=== PATIENT | female | born 1970 | race Caucasian/White ===

== ENCOUNTER → 2022-01-11 | Emergency (ER) | payer OTHER ==
[2022-01-11 18:27] VITALS: BP 120/88; PULSE 96; RESP 16; TEMP 98.5; BMI 21.0
[2022-01-11 21:48] LABS: BASO % 0.2 % (0-2.0); EOS % 2.4 % (0-4.5); HEMATOCRIT 44.4 % (32.4-45.2); HEMOGLOBIN 14.6 GM/dL (10.7-15.3); LYMPH % 24.9 % (8-40); MCH 29.1 pg (25.7-33.7); MCHC 32.9 g/dl (32.0-36.0); MEAN CELL VOLUME 88.4 fl (80-96); MEAN PLT VOLUME 8.8 fl (7.5-11.1); MONO % 7.1 % (3.8-10.2); NEUT % 65.4 % (42.8-82.8); PLATELET COUNT 401 10^3/uL (134-434); RBC 5.03 M/mm3 (3.60-5.2); RDW 14.2 % (11.6-15.6); WHITE BLOOD COUNT 6.4 K/mm3 (4.0-10.0)
[2022-01-11 22:18] LABS: CHLORIDE 96 mmol/L (98-107); SODIUM 135 mmol/L (136-145)
[2022-01-11 22:20] LABS: CALCIUM 9.1 mg/dL (8.5-10.1); GLUCOSE,RANDOM 87 mg/dL (74-106)
[2022-01-11 22:22] LABS: ALBUMIN 3.1 g/dl (3.4-5.0); BLOOD UREA NITROGEN 22.4 mg/dL (7-18); CO2 36 mmol/L (21-32)
[2022-01-11 22:24] LABS: CREATININE 0.7 mg/dL (0.55-1.3); SGOT/AST 86 U/L (15-37)
[2022-01-11 22:26] LABS: BILIRUBIN,TOTAL 0.4 mg/dL (0.2-1); TOT PROT 7.2 g/dl (6.4-8.2)
[2022-01-11 22:27] LABS: ALK PHOS 99 U/L (45-117)
[2022-01-11 22:31] LABS: EPI CELLS 24 /uL (0-25.1); HYALINE CASTS 4 /uL (0-3.1); PH,URINE 6.5 (5.0-8.0); URINE APPEARANCE CLEAR; URINE BACTERIA 22 /uL (0-1359); URINE BILIRUBIN NEGATIVE (NEGATIVE); URINE COLOR DK YELLOW; URINE GLUCOSE (UA) NEGATIVE (NEGATIVE); URINE KETONE 1+ (NEGATIVE); URINE LEUK ESTERASE NEGATIVE (NEGATIVE); URINE NITRITE NEGATIVE (NEGATIVE); URINE PROTEIN 1+ (NEGATIVE); URINE RBC 40 /uL (0-23.9); URINE WBC 8 /uL (0-25.8)
[2022-01-11 22:34] LABS: ANION GAP 2 MMOL/L (8-16); SGPT/ALT 21 U/L (13-61)
== END | disposition left against medical advice (07) ==
LOC: JER 18:08
DX: U07.1 COVID-19 (principal)
CPT/HCPCS: 0241U-QW; 36415; 71046-TC-FY; 80053; 81003; 85025; 87086; 99284-25

== ENCOUNTER 2022-01-14 06:55 | Inpatient (IN) | payer OTHER ==
[2022-01-14] MEDS ORDERED: DEXAMETHASONE SOD PHOSPHATE 4 MG/1 ML VIAL IVPUSH ONE (08:36)
[2022-01-14] MEDS ORDERED: DEXAMETHASONE SOD PHOSPHATE 10 MG/1 ML VIAL ONE (08:42)
[2022-01-14] MEDS ORDERED: CEFTRIAXONE 1,000 MG in DEXTROSE 5%-WATER - 50 ML IVPB ONE (08:44)
[2022-01-14] MEDS: ALBUTEROL SO4 2.5/IPRATROPIUM 0.5 INH SOL 3 ML VIAL.NEB. NEB SCH ×3 (08:45→09:15)
[2022-01-14] MEDS ORDERED: CEFTRIAXONE 1 GM/50 ML BAG ONE (09:25)
[2022-01-14 09:50] LABS: BASO % 0.2 % (0-2.0); EOS % 1.7 % (0-4.5); HEMOGLOBIN 14.4 GM/dL (10.7-15.3); LYMPH % 19.2 % (8-40); MCH 30.4 pg (25.7-33.7); MCHC 34.2 g/dl (32.0-36.0); MEAN PLT VOLUME 7.8 fl (7.5-11.1); MONO % 5.7 % (3.8-10.2); NEUT % 73.2 % (42.8-82.8); PLATELET COUNT 372 10^3/uL (134-434); RBC 4.72 M/mm3 (3.60-5.2); RDW 14.7 % (11.6-15.6); WHITE BLOOD COUNT 6.8 K/mm3 (4.0-10.0)
[2022-01-14 09:55] LABS: VENOUS BASE EXCESS 6.1 mmol/L (-2-2); VENOUS O2 SATURATION 57.1 % (70-80); VENOUS PH 7.335 (7.310-7.410)
[2022-01-14 09:59] LABS: INR 1.1 (0.83-1.09); PROTHROMBIN TIME (PATIENT) 12.7 SEC (9.7-13.0)
[2022-01-14 10:02] LABS: ACTIVATED PTT 33.6 SECONDS (25.2-36.5)
[2022-01-14 10:12] LABS: ALBUMIN 3.6 g/dl (3.4-5.0); BLOOD UREA NITROGEN 23.5 mg/dL (7-18); CALCIUM 9.1 mg/dL (8.5-10.1)
[2022-01-14 10:15] LABS: BILIRUBIN,DIRECT 0.1 mg/dL (0.0-0.2)
[2022-01-14 10:17] LABS: BILIRUBIN,TOTAL 0.3 mg/dL (0.2-1); TOT PROT 6.9 g/dl (6.4-8.2)
[2022-01-14] MEDS ORDERED: ALBUTEROL SO4 HFA INHALER IH PRN (11:06)
[2022-01-14] MEDS ORDERED: AZITHROMYCIN IVPB 500 MG/250 ML BAG IVPB ONE (11:44)
[2022-01-14] MEDS: AZITHROMYCIN IVPB 500 MG/250 ML BAG IVPB SCH (12:15)
[2022-01-14] MEDS ORDERED: ENOXAPARIN NA (PORCINE) 40 MG/0.4 ML DISP.SYRIN SQ SCH (12:15)
[2022-01-14] MEDS ORDERED: LIDOCAINE 5% TOPICAL PATCH TP PRN (12:57)
[2022-01-14] MEDS ORDERED: REMDESIVIR 200 MG in SODIUM CHLORIDE 250 ML IVPB ONE (13:00)
[2022-01-14] MEDS ORDERED: busPIRone HCL 5 MG TABLET ONE (14:25)
[2022-01-14] MEDS: busPIRone HCL 5 MG TABLET PO SCH ×2 (14:28→23:38)
[2022-01-14] MEDS ORDERED: methylPREDNISolone NA SUCC 40 MG/1 ML VIAL ONE (17:46)
[2022-01-14] MEDS ORDERED: ACETAMINOPHEN 325 MG TABLET (FP) ONE (17:52)
[2022-01-14] MEDS: methylPREDNISolone NA SUCC 40 MG/1 ML VIAL IVPUSH SCH (18:00)
[2022-01-14] MEDS: ACETAMINOPHEN 325 MG TABLET (FP) PO PRN (18:01)
[2022-01-14 19:21] LABS: PH,URINE 6.5 (5.0-8.0); URINE APPEARANCE Clear; URINE BILIRUBIN Negative (NEGATIVE); URINE COLOR Yellow; URINE GLUCOSE (UA) Negative (NEGATIVE); URINE KETONE Negative (NEGATIVE); URINE LEUK ESTERASE Negative (NEGATIVE); URINE NITRITE Negative (NEGATIVE); URINE PROTEIN Trace (NEGATIVE); URINE UROBILINOGEN 0.2 mg/dL (0.2-1.0)
[2022-01-14] MEDS: DULoxetine HCL 30 MG CAPSULE.DR PO SCH (23:34)
[2022-01-14] MEDS: lamoTRIgine 25 MG TABLET PO SCH (23:35)
[2022-01-14] MEDS: traZODone HCL 100 MG TABLET (FP) PO SCH (23:35)
[2022-01-15] MEDS: LIDOCAINE PATCH REMOVAL MC SCH ×2 (00:10→22:30)
[2022-01-15] MEDS: methylPREDNISolone NA SUCC 40 MG/1 ML VIAL IVPUSH SCH ×3 (01:47→17:33)
[2022-01-15] MEDS: ALBUTEROL SO4 2.5/IPRATROPIUM 0.5 INH SOL 3 ML VIAL.NEB. NEB SCH ×5 (02:10→20:16)
[2022-01-15 02:54] VITALS: BMI 18.1
[2022-01-15] MEDS: busPIRone HCL 5 MG TABLET PO SCH ×3 (06:09→22:28)
[2022-01-15 09:58] LABS: BASO % 0.6 % (0-2.0); EOS % 0.1 % (0-4.5); HEMATOCRIT 37.8 % (32.4-45.2); HEMOGLOBIN 12.5 GM/dL (10.7-15.3); LYMPH % 17.7 % (8-40); MCH 29.3 pg (25.7-33.7); MCHC 33.1 g/dl (32.0-36.0); MEAN CELL VOLUME 88.4 fl (80-96); MEAN PLT VOLUME 8.3 fl (7.5-11.1); MONO % 3.1 % (3.8-10.2); NEUT % 78.5 % (42.8-82.8); PLATELET COUNT 359 10^3/uL (134-434); RBC 4.27 M/mm3 (3.60-5.2); RDW 14.6 % (11.6-15.6); WHITE BLOOD COUNT 3.6 K/mm3 (4.0-10.0)
[2022-01-15] MEDS ORDERED: PATIENT'S OWN MEDICATION (NON-FORMULARY) (Tiotropium Bromide [Spiriva] 18 MCG Cap.W.Dev) PO SCH (10:00)
[2022-01-15] MEDS ORDERED: DEXAMETHASONE SOD PHOSPHATE 4 MG/1 ML VIAL IVPUSH SCH (10:00)
[2022-01-15] MEDS ORDERED: TIOTROPIUM BROMIDE 2.5 MCG (SPIRIVA) RESPIMAT INHALER IH SCH (10:00)
[2022-01-15] MEDS: lamoTRIgine 25 MG TABLET PO SCH ×2 (10:05→22:28)
[2022-01-15] MEDS: ENOXAPARIN NA (PORCINE) 40 MG/0.4 ML DISP.SYRIN SQ SCH (10:05)
[2022-01-15] MEDS: DULoxetine HCL 30 MG CAPSULE.DR PO SCH ×2 (10:05→22:28)
[2022-01-15] MEDS: AZITHROMYCIN IVPB 500 MG/250 ML BAG IVPB SCH (10:05)
[2022-01-15] MEDS: LORATADINE 10 MG TABLET PO SCH (10:05)
[2022-01-15 10:34] LABS: BLOOD UREA NITROGEN 21.2 mg/dL (7-18)
[2022-01-15 10:35] LABS: ALBUMIN 3.2 g/dl (3.4-5.0); MAGNESIUM 1.5 mg/dL (1.8-2.4)
[2022-01-15 10:37] LABS: CREATININE 0.7 mg/dL (0.55-1.3); PHOSPHOROUS 4.1 mg/dL (2.5-4.9)
[2022-01-15 10:38] LABS: BILIRUBIN,TOTAL 0.2 mg/dL (0.2-1); TOT PROT 6.3 g/dl (6.4-8.2)
[2022-01-15] MEDS: ATOMOXETINE HCL 40 MG CAPSULE PO SCH (12:02)
[2022-01-15] MEDS: ACETAMINOPHEN 325 MG TABLET (FP) PO PRN (13:08)
[2022-01-15] MEDS: traZODone HCL 100 MG TABLET (FP) PO SCH (22:28)
[2022-01-16] MEDS: methylPREDNISolone NA SUCC 40 MG/1 ML VIAL IVPUSH SCH ×4 (02:26→22:03)
[2022-01-16] MEDS: busPIRone HCL 5 MG TABLET PO SCH ×3 (07:16→22:04)
[2022-01-16] MEDS: ALBUTEROL SO4 2.5/IPRATROPIUM 0.5 INH SOL 3 ML VIAL.NEB. NEB SCH ×3 (07:48→20:10)
[2022-01-16] MEDS: ENOXAPARIN NA (PORCINE) 40 MG/0.4 ML DISP.SYRIN SQ SCH (11:06)
[2022-01-16] MEDS: lamoTRIgine 25 MG TABLET PO SCH ×2 (11:06→22:03)
[2022-01-16] MEDS: AZITHROMYCIN IVPB 500 MG/250 ML BAG IVPB SCH (11:07)
[2022-01-16] MEDS: LORATADINE 10 MG TABLET PO SCH (11:08)
[2022-01-16] MEDS: DULoxetine HCL 30 MG CAPSULE.DR PO SCH ×2 (11:08→22:03)
[2022-01-16] MEDS: ATOMOXETINE HCL 40 MG CAPSULE PO SCH (11:08)
[2022-01-16] MEDS: traZODone HCL 100 MG TABLET (FP) PO SCH (22:03)
[2022-01-16] MEDS: LIDOCAINE PATCH REMOVAL MC SCH (22:08)
[2022-01-17] MEDS: busPIRone HCL 5 MG TABLET PO SCH ×3 (07:13→21:28)
[2022-01-17] MEDS: ALBUTEROL SO4 2.5/IPRATROPIUM 0.5 INH SOL 3 ML VIAL.NEB. NEB SCH ×4 (07:35→20:32)
[2022-01-17 08:43] LABS: BASO % 0.1 % (0-2.0); HEMATOCRIT 38.7 % (32.4-45.2); HEMOGLOBIN 12.5 GM/dL (10.7-15.3); LYMPH % 11.3 % (8-40); MCH 28.9 pg (25.7-33.7); MCHC 32.3 g/dl (32.0-36.0); MEAN CELL VOLUME 89.3 fl (80-96); MEAN PLT VOLUME 8.1 fl (7.5-11.1); MONO % 3.9 % (3.8-10.2); NEUT % 84.7 % (42.8-82.8); PLATELET COUNT 395 10^3/uL (134-434); RBC 4.34 M/mm3 (3.60-5.2); WHITE BLOOD COUNT 9.9 K/mm3 (4.0-10.0)
[2022-01-17 08:48] LABS: ALBUMIN 2.9 g/dl (3.4-5.0); BLOOD UREA NITROGEN 16.8 mg/dL (7-18); CALCIUM 9.2 mg/dL (8.5-10.1)
[2022-01-17 08:51] LABS: CREATININE 0.5 mg/dL (0.55-1.3)
[2022-01-17 08:53] LABS: BILIRUBIN,TOTAL 0.2 mg/dL (0.2-1); TOT PROT 5.7 g/dl (6.4-8.2)
[2022-01-17] MEDS: AZITHROMYCIN IVPB 500 MG/250 ML BAG IVPB SCH (10:14)
[2022-01-17] MEDS: methylPREDNISolone NA SUCC 40 MG/1 ML VIAL IVPUSH SCH (10:15)
[2022-01-17] MEDS: ATOMOXETINE HCL 40 MG CAPSULE PO SCH (10:15)
[2022-01-17] MEDS: ENOXAPARIN NA (PORCINE) 40 MG/0.4 ML DISP.SYRIN SQ SCH ×2 (10:15→10:23)
[2022-01-17] MEDS: lamoTRIgine 25 MG TABLET PO SCH ×2 (10:15→21:29)
[2022-01-17] MEDS: DULoxetine HCL 30 MG CAPSULE.DR PO SCH ×2 (10:15→21:29)
[2022-01-17] MEDS: LORATADINE 10 MG TABLET PO SCH (10:15)
[2022-01-17] MEDS ORDERED: MAGNESIUM OXIDE 400 MG TABLET (FP) PO ONE (10:45)
[2022-01-17 12:47] LABS: MAGNESIUM 1.7 mg/dL (1.8-2.4)
[2022-01-17 12:51] LABS: PHOSPHOROUS 3.8 mg/dL (2.5-4.9)
[2022-01-17] MEDS: predniSONE 20 MG TABLET (UD) PO SCH (14:51)
[2022-01-17] MEDS: traZODone HCL 100 MG TABLET (FP) PO SCH (21:29)
[2022-01-17] MEDS: LIDOCAINE PATCH REMOVAL MC SCH (21:29)
[2022-01-17] MEDS: ACETAMINOPHEN 325 MG TABLET (FP) PO PRN (21:32)
[2022-01-18] MEDS: busPIRone HCL 5 MG TABLET PO SCH ×3 (06:21→21:58)
[2022-01-18] MEDS: ACETAMINOPHEN 325 MG TABLET (FP) PO PRN (06:23)
[2022-01-18] MEDS: ALBUTEROL SO4 2.5/IPRATROPIUM 0.5 INH SOL 3 ML VIAL.NEB. NEB SCH ×4 (08:00→20:00)
[2022-01-18 09:16] LABS: BASO % 0.4 % (0-2.0); HEMATOCRIT 39.9 % (32.4-45.2); HEMOGLOBIN 13.1 GM/dL (10.7-15.3); MCH 29.3 pg (25.7-33.7); MCHC 32.8 g/dl (32.0-36.0); MEAN CELL VOLUME 89.2 fl (80-96); MEAN PLT VOLUME 8.1 fl (7.5-11.1); MONO % 7.1 % (3.8-10.2); NEUT % 71.5 % (42.8-82.8); PLATELET COUNT 395 10^3/uL (134-434); RBC 4.47 M/mm3 (3.60-5.2); RDW 15.1 % (11.6-15.6)
[2022-01-18 09:55] LABS: CALCIUM 9.2 mg/dL (8.5-10.1)
[2022-01-18 09:56] LABS: BLOOD UREA NITROGEN 18.3 mg/dL (7-18)
[2022-01-18 09:58] LABS: CREATININE 0.4 mg/dL (0.55-1.3)
[2022-01-18 09:59] LABS: BILIRUBIN,TOTAL 0.4 mg/dL (0.2-1)
[2022-01-18 10:00] LABS: TOT PROT 5.8 g/dl (6.4-8.2)
[2022-01-18] MEDS: DULoxetine HCL 30 MG CAPSULE.DR PO SCH ×2 (10:11→21:57)
[2022-01-18] MEDS: predniSONE 20 MG TABLET (UD) PO SCH (10:11)
[2022-01-18] MEDS: ENOXAPARIN NA (PORCINE) 40 MG/0.4 ML DISP.SYRIN SQ SCH ×2 (10:11→10:37)
[2022-01-18] MEDS: lamoTRIgine 25 MG TABLET PO SCH ×2 (10:11→21:57)
[2022-01-18] MEDS: LORATADINE 10 MG TABLET PO SCH (10:11)
[2022-01-18] MEDS: ATOMOXETINE HCL 40 MG CAPSULE PO SCH (12:38)
[2022-01-18] MEDS: traZODone HCL 100 MG TABLET (FP) PO SCH (21:55)
[2022-01-18] MEDS: LIDOCAINE PATCH REMOVAL MC SCH (22:02)
[2022-01-19 06:51] VITALS: RESP 18
[2022-01-19] MEDS: busPIRone HCL 5 MG TABLET PO SCH ×2 (07:07→15:34)
[2022-01-19] MEDS: ALBUTEROL SO4 2.5/IPRATROPIUM 0.5 INH SOL 3 ML VIAL.NEB. NEB SCH ×3 (07:25→15:43)
[2022-01-19] MEDS: ENOXAPARIN NA (PORCINE) 40 MG/0.4 ML DISP.SYRIN SQ SCH (10:59)
[2022-01-19] MEDS: lamoTRIgine 25 MG TABLET PO SCH (11:00)
[2022-01-19] MEDS: predniSONE 20 MG TABLET (UD) PO SCH (11:00)
[2022-01-19] MEDS: ATOMOXETINE HCL 40 MG CAPSULE PO SCH (11:00)
[2022-01-19] MEDS: DULoxetine HCL 30 MG CAPSULE.DR PO SCH (11:00)
[2022-01-19] MEDS: LORATADINE 10 MG TABLET PO SCH (11:00)
[2022-01-19 19:23] VITALS: BP 103/71; PULSE 80; TEMP 98.8
== END 2022-01-19 19:25 | disposition home or self-care (01) | DRG 140 ==
LOC: JER 06:55 → JERBED 10:52 → J8W 23:18
PROVIDERS: ADMIT Internal Medicine; ATTEND Internal Medicine
DX: J44.1 Chronic obstructive pulmonary disease with (acute) exacerbation (principal); J96.11 Chronic respiratory failure with hypoxia; F11.20 Opioid dependence, uncomplicated; F90.9 Attention-deficit hyperactivity disorder, unspecified type; J44.9 Chronic obstructive pulmonary disease, unspecified
CPT/HCPCS: 0241U-QW; 36415; 71045-TC-FY; 71275-TC; 80053; 80061; 81003; 82248; 82728; 82803; 83036; 83605; 83615; 83735; 84100; 84439; 84443; 84484; 84703; 85025; 85610; 85730; 86140; 87040; 87086; 93005; 93010; 94640; 94761; 99285-25; Q9967

== ENCOUNTER 2022-08-19 18:42 | Emergency (ER) | payer BC ==
[2022-08-19 18:47] VITALS: BP 128/84; PULSE 94; RESP 18; TEMP 98.2; BMI 20.5
[2022-08-19] MEDS ORDERED: ACETAMINOPHEN 500 MG TABLET (FP) PO ONE (19:21)
[2022-08-19] MEDS ORDERED: METHOCARBAMOL 500 MG TABLET PO ONE (19:22)
[2022-08-19] MEDS ORDERED: LIDOCAINE 5% TOPICAL PATCH TP ONE (19:22)
[2022-08-19] MEDS ORDERED: IBUPROFEN 600 MG TABLET (FP) PO ONE ×2 (19:22→19:25)
[2022-08-19] MEDS ORDERED: LIDOCAINE 5% TOPICAL PATCH ONE (19:25)
[2022-08-19] MEDS ORDERED: METHOCARBAMOL 500 MG TABLET ONE (19:25)
[2022-08-19] MEDS ORDERED: ACETAMINOPHEN 500 MG TABLET (FP) ONE (19:25)
[2022-08-20] MEDS ORDERED: LIDOCAINE PATCH REMOVAL MC SCH (07:00)
== END 2022-08-19 21:14 | disposition home or self-care (01) ==
LOC: JERFT 18:42
DX: M62.830 Muscle spasm of back (principal)
CPT/HCPCS: 99283-25

== ENCOUNTER 2022-09-16 15:20 | Emergency (ER) | payer BC, OTHER ==
[2022-09-16 15:33] VITALS: BMI 20.1
[2022-09-16] MEDS ORDERED: SODIUM CHLORIDE 0.9% 1000 ML INFUS.BAG IV ONE (17:22)
[2022-09-16] MEDS ORDERED: ONDANSETRON 4 MG/2 ML VIAL IVPUSH ONE (17:22)
[2022-09-16] MEDS ORDERED: ACETAMINOPHEN 1000 MG/100 ML BAG IVPB ONE (17:22)
[2022-09-16] MEDS ORDERED: ONDANSETRON 4 MG/2 ML VIAL ONE (17:27)
[2022-09-16] MEDS ORDERED: ACETAMINOPHEN INJECTION 100 ML IVPB ONE (17:27)
[2022-09-16] MEDS ORDERED: METOCLOPRAMIDE HCL INJECTION 10 MG/2 ML VIAL IVPUSH ONE (18:10)
[2022-09-16 18:18] LABS: BASO % 0.3 % (0-2.0); EOS % 0.5 % (0-4.5); HEMATOCRIT 43.6 % (32.4-45.2); HEMOGLOBIN 14.7 GM/dL (10.7-15.3); MCH 32.3 pg (25.7-33.7); MCHC 33.7 g/dl (32.0-36.0); MEAN CELL VOLUME 95.8 fl (80-96); MEAN PLT VOLUME 8.4 fl (7.5-11.1); MONO % 7.1 % (3.8-10.2); NEUT % 55.1 % (42.8-82.8); PLATELET COUNT 335 10^3/uL (134-434); RBC 4.55 M/mm3 (3.60-5.2); RDW 13.2 % (11.6-15.6); WHITE BLOOD COUNT 9.3 K/mm3 (4.0-10.0)
[2022-09-16] MEDS ORDERED: METOCLOPRAMIDE HCL INJECTION 10 MG/2 ML VIAL ONE (18:36)
[2022-09-16 18:47] LABS: CALCIUM 9.6 mg/dL (8.5-10.1)
[2022-09-16 18:49] LABS: ALBUMIN 4.3 g/dl (3.4-5.0); BLOOD UREA NITROGEN 15.3 mg/dL (7-18)
[2022-09-16 18:51] LABS: CREATININE 0.7 mg/dL (0.55-1.3)
[2022-09-16 18:52] LABS: BILIRUBIN,TOTAL 0.5 mg/dL (0.2-1); TOT PROT 7.2 g/dl (6.4-8.2)
[2022-09-16 21:27] VITALS: BP 99/62; PULSE 86; RESP 18; TEMP 98
== END 2022-09-16 21:53 | disposition home or self-care (01) ==
LOC: JER 15:20
PROC: 3E033NZ Introduction of Analgesics, Hypnotics, Sedatives into Peripheral Vein, Percutaneous Approach (ICD-10-PCS; principal; 2022-09-16)
PROC: 3E033GC Introduction of Other Therapeutic Substance into Peripheral Vein, Percutaneous Approach (ICD-10-PCS; 2022-09-16)
PROC: 3E033GC Introduction of Other Therapeutic Substance into Peripheral Vein, Percutaneous Approach (ICD-10-PCS; 2022-09-16)
DX: R05.1 Acute cough (principal); R11.2 Nausea with vomiting, unspecified; R19.7 Diarrhea, unspecified; R10.31 Right lower quadrant pain; Z20.822 Contact with and (suspected) exposure to COVID-19
CPT/HCPCS: 0241U-QW; 36415; 71046-TC-FY; 74177-TC; 80053; 83605; 83690; 85025; 99285-25; Q9967